=== PATIENT | female | born 1945 | race Caucasian/White ===

== ENCOUNTER → 2017-02-26 | Outpatient (CLI) | payer MEDICARE, BC ==
[~2017-02-26] MED LIST: AMIT100T35 PO; CALC1TAB40 PO; CETI1TAB14 PO; FLEC50TA15 PO; HYDR-2164 PO; LOSA50TA52 PO; METO-68 PO; OMEP-29 PO; SIMV40TA82 PO; WARF10TA21 PO; [UNRECOGNIZED DRUG - CODE] PO; [UNRECOGNIZED DRUG - CODE] PO; [UNRECOGNIZED DRUG - CODE] PO
== END ==
LOC: IMA 12:24
PROVIDERS: ATTEND Family Medicine
DX: M85.80 Other specified disorders of bone density and structure, unspecified site (principal); Z12.31 Encounter for screening mammogram for malignant neoplasm of breast
CPT/HCPCS: 77063; 77080; G0202